=== PATIENT | male | born 1980 | race Caucasian/White ===

== ENCOUNTER 2018-02-28 08:33 | Day surgery (SDC) | payer OTHER ==
[~2018-02-28 08:33] MED LIST: EPHEDrine SULFATE 50 MG/5 ML SYG
[2018-02-28] MEDS ORDERED: CEFAZOLIN 2 GM/50 ML (PMX) 50 ML IVPB (09:00)
[2018-02-28] MEDS ORDERED: SOD CHLORIDE 0.9% 1,000 ML IV (09:00)
[2018-02-28 09:24] LABS: ADD MAN DIFF? NO
[2018-02-28 09:35] LABS: BASOPHIL # 0.1 10^3/ul (0.0-0.1); BASOPHILS % 0.7 % (0.0-2.0); EOSINOPHILS # 0.2 10^3/ul (0.0-0.5); EOSINOPHILS % 2.8 % (0.0-7.0); HEMATOCRIT 44.8 % (42.0-52.0); HEMOGLOBIN 14.7 g/dl (14.0-18.0); LYMPHOCYTES # 1.4 10^3/ul (0.8-2.9); LYMPHOCYTES % 21.2 % (15.0-51.0); MEAN CORPUSCULAR HEMOGLOBIN 28.6 pg (29.0-33.0); MEAN CORPUSCULAR HGB CONC 32.8 g/dl (32.0-37.0); MEAN CORPUSCULAR VOLUME 87.2 fl (82.0-101.0); MEAN PLATELET VOLUME 9.9 fl (7.4-10.4); MONOCYTE # 0.5 10^3/ul (0.3-0.9); NEUTROPHIL # 4.5 10^3/ul (1.6-7.5); NEUTROPHILS % 66.9 % (39.0-77.0); PLATELET COUNT 288 10^3/UL (140-415); RED BLOOD COUNT 5.14 10^6/ul (4.70-6.10)
[2018-02-28 09:35] LABS: WHITE BLOOD COUNT 6.7 10^3/ul (4.8-10.8)
[2018-02-28] MEDS ORDERED: MIDAZOLAM 1 MG/ML 2 ML INJ (09:49)
[2018-02-28] MEDS ORDERED: FENTAnyl 50 MCG/ML VIAL (09:49)
[2018-02-28] MEDS ORDERED: PROPOFOL 20 ML (09:49)
[2018-02-28] MEDS ORDERED: ROPIVACAINE 0.5 % 30 ML VIAL (09:49)
[2018-02-28] MEDS ORDERED: CEFAZOLIN 1 GM INJ (09:49)
[2018-02-28] MEDS ORDERED: ROCURONIUM 50 MG INJ (09:49)
[2018-02-28 09:57] LABS: ALANINE AMINOTRANSFERASE 21 IU/L (13-69); ALBUMIN 4.3 g/dl (3.3-4.9); ALBUMIN/GLOBULIN RATIO 1.53; ALKALINE PHOSPHATASE 71 IU/L (42-121); ANION GAP 11 (5-13); ASPARTATE AMINO TRANSFERASE 25 IU/L (15-46); BILIRUBIN,INDIRECT 0.4 mg/dl (0-1.1); BILIRUBIN,TOTAL 0.4 mg/dl (0.2-1.3); BLOOD UREA NITROGEN 14 mg/dl (7-20); CALCIUM 9.4 mg/dl (8.4-10.2); CARBON DIOXIDE 27 mmol/L (21-31); CHLORIDE 106 mmol/L (97-110); CREATININE 0.67 mg/dl (0.61-1.24); Estimated GFR > 60 mL/min (>60); GLUCOSE 89 mg/dl (70-220); POTASSIUM 3.8 mmol/L (3.5-5.1); SODIUM 144 mmol/L (135-144); TOTAL PROTEIN 7.1 g/dl (6.1-8.1)
[2018-02-28 09:59] LABS: INR 0.91; PROTIME 12.3 Sec (11.9-14.9)
[2018-02-28 10:00] LABS: PARTIAL THROMBOPLASTIN TIME 30.3 Sec (23.0-35.0)
[2018-02-28] MEDS ORDERED: ONDANSETRON 4 MG INJ IV (10:00)
[2018-02-28] MEDS ORDERED: METOCLOPRAMIDE 10 MG INJ IV (10:00)
[2018-02-28] MEDS ORDERED: EPHEDrine SULFATE 50 MG/5 ML SYG IV (10:00)
[2018-02-28] MEDS ORDERED: DIPHENHYDRAMINE 50 MG INJ IV (10:00)
[2018-02-28] MEDS ORDERED: HYDROmorphONE 1 MG/5 ML IV SYRINGE IV ×2 (10:00)
[2018-02-28] MEDS ORDERED: FENTAnyl 50 MCG/ML VIAL IV ×2 (10:00)
[2018-02-28] MEDS ORDERED: MEPERIDINE 25 MG INJ IV (10:00)
[2018-02-28] MEDS ORDERED: LABETALOL HCL 20MG INJ IV (10:00)
[2018-02-28] MEDS ORDERED: KETOROLAC 30 MG INJ (10:09)
[2018-02-28] MEDS ORDERED: GLYCOPYRROLATE 0.4 MG INJ (10:09)
[2018-02-28] MEDS ORDERED: METOCLOPRAMIDE 10 MG INJ (10:09)
[2018-02-28] MEDS ORDERED: ONDANSETRON 4 MG INJ (10:09)
[2018-02-28] MEDS ORDERED: NEOSTIGMINE 3 MG/3 ML SYRINGE (10:09)
[2018-02-28] MEDS ORDERED: DEXAMETHASONE 4 MG/ML 1 ML INJ (10:09)
[2018-02-28] MEDS ORDERED: HYDROCODONE/APAP (5/325) TAB PO (11:00)
[2018-02-28] MEDS: HYDROmorphONE 1 MG/5 ML IV SYRINGE IV (11:17)
[2018-02-28] MEDS: FENTAnyl 50 MCG/ML VIAL IV (11:25)
[2018-02-28] MEDS: OXYCODONE/ACETAMINOPHEN (5/325) TAB PO (12:21)
== END 2018-02-28 13:29 | disposition home or self-care (01) ==
LOC: SDS 08:33
DX: K40.30 Unilateral inguinal hernia, with obstruction, without gangrene, not specified as recurrent (principal); J45.909 Unspecified asthma, uncomplicated
CPT/HCPCS: 49507; 71045; 80053; 85025; 85610; 85730; 93005

== ENCOUNTER 2018-03-09 17:25 | Emergency (ER) | payer OTHER ==
[2018-03-09] MEDS ORDERED: KETOROLAC 30 MG INJ IV (20:15)
[2018-03-09] MEDS ORDERED: ONDANSETRON 4 MG INJ IV (20:15)
[2018-03-09] MEDS ORDERED: SOD CHLORIDE 0.9% 1,000 ML IV (20:15)
== END 2018-03-09 20:40 | disposition left against medical advice (07) ==
LOC: FTE 17:25
DX: G89.18 Other acute postprocedural pain (principal)
CPT/HCPCS: 99282; J7030